=== PATIENT | female | born 1980 | race Caucasian/White ===

== ENCOUNTER 2022-10-25 18:11 | Emergency (ER) | payer BC, SELFPAY ==
[2022-10-25 18:20] VITALS: BP 147/93; PULSE 95; RESP 18; TEMP 37.2; O2SAT 98; BMI 49.7
--- NOTE | 2022-10-25 18:27 | XR_ITS ---
PROCEDURE INFORMATION: Exam: XR Right Tibia and Fibula Exam date and time: 10/25/2022 6:20 PM Age: 42 years old Clinical indication: Injury or trauma; Fall; Blunt trauma; Patient HX: Large patient fell injuring the right lower leg. TECHNIQUE: Imaging protocol: Radiologic exam of the right tibia and fibula. Views: 2 views. COMPARISON: No relevant prior studies available. FINDINGS: Bones/joints: No acute fracture or dislocation. Tricompartmental degenerative changes of the knee with moderate joint space narrowing of the medial tibiofemoral compartment and prominent tricompartmental marginal osteophytes. Soft tissues: Unremarkable. IMPRESSION: No acute osseous abnormality.
--- NOTE | 2022-10-25 18:37 | EXP.UTC ---
Discharge Plan Disposition Patient Disposition: Home, Self-Care Condition: Good Referrals Follow up/Referrals: Lorena Vo MD [Primary Care Provider] - See instructions Activity Restrictions/Add. Instructions Additional Instructions/Restrictions: *weight bearing as tolerated *RICE, Rest the extremity, Ice 15-20 minutes 3-4 times daily, Compress- wear the nils wrap as discussed as much as possible to help reduce swelling and pain, Elevate the extremity when at rest *Nils wrap is for support and help control swelling, use it except in the shower. Be sure that is not to tight but not to loose either *Elevate when resting? *Ibuprofen 600-800mg every 6-8 hours as needed for pain an inflammation. If need something more can take Tylenol in between doses of Ibuprofen to help Immediately follow up with your family doctor for new or worsening of symptoms, or no noticeable improvement over the next 3-5 days Clinical Impressions Clinical Impression: Hematoma Instructions Patient Instructions: DI for Hematoma (Bruise), How To Perform RICE (Rest, Ice, Compress, Elevate), Ibuprofen Discharge ED Provider: Pema Rapp [facility] [place] General Stated complaint: AO fell 10/25 1630 left leg injury Mode of Arrival: Ambulatory Source of Information: Patient Limitations: No Limitations Time Seen by Provider: 10/25/22 18:37 Description of Symptoms (Recalled from Triage Doc. by RN): PATIENT STATES SHE FELL INTO A BROKEN FLOOR VENT TODAY AND INJURED RIGHT LEWIS HEENT Symptoms (Recalled from RN notes): No Resp Symptoms (Recalled from RN notes): No Skin Symptoms (Recalled from RN notes): No MS Symptoms (Recalled from RN notes): Yes Functional Status (Recalled from RN notes): WNL History of Present Illness Provider Complaint: Patients floor vent was broken and she had something laying over the hole in her floor when she accidently fell in the hole and fell to the ground States that she has a knot on her right lower leg just below her knee area States that she thinks it may just be a hematoma but family wanted her to get it checked States that she has a scratch on her right upper arm but that doesnt hurt and hit her head a little but denies LOC Related Data Allergies Allergy/AdvReac Type Severity Reaction Status Date / Time No Known Allergies Allergy Verified 10/25/22 18:32 Worker's Comp Is this a Worker's Comp case?: No PFSH PFSH Disclaimer: The information contained in this section may have been updated after the patient was seen, as this information can be updated by other users. Medical History (Updated 10/25/22 @ 19:14 by Pema Rapp APRN) Hyperlipidemia Hypertension Migraine Surgical History (Updated 10/25/22 @ 18:32 by Lela Hunter RN) History of appendectomy History of section History of cholecystectomy History of tubal ligation Social History Smoking Status: Unknown if ever smoked alcohol intake: never current occupational status: employed Travel in the last 8 weeks: None ROS Obtained: Yes All systems reviewed & no additional complaints except as documented and Yes Systems reviewed as appropriate & no additional complaints except as documented Constitutional Constitutional: Reports system reviewed and no additional complaints, except as documented, Reports as per HPI and Denies headache(s) Eyes Eyes: Reports system reviewed and no additional complaints, except as documented, Reports as per HPI, Denies change in vision, Denies diplopia and Denies photophobia ENT Ears, Nose, Mouth, and Throat: Reports system reviewed and no additional complaints, except as documented, Reports as per HPI and Denies headache(s) Cardiovascular Cardiovascular: Reports system reviewed and no additional complaints, except as documented and Reports as per HPI Respiratory Respiratory: Reports system reviewed and no additional complaints, except as documented and Reports as per HPI Gastrointestinal Gastrointestingal: Re
[2022-10-25 19:16] VITALS: BP 147/93; PULSE 95; RESP 18; TEMP 37.2; O2SAT 98
== END 2022-10-25 19:18 | disposition home or self-care (01) ==
PROVIDERS: Emergency Provider Nurse Practitioner
DX: I10 Essential (primary) hypertension; E78.5 Hyperlipidemia, unspecified; W17.2XXA Fall into hole, initial encounter; S80.11XA Contusion of right lower leg, initial encounter
CPT/HCPCS: 73590; 99203; 99212; G0463